=== PATIENT | male | born 1985 | race Hispanic/Latino ===

== ENCOUNTER 2019-07-24 12:11 | Emergency (ER) | payer OTHER ==
[2019-07-24 12:28] VITALS: BP 142/87
--- NOTE | 2019-07-24 12:28 | Event Note ---
ED Screening Note Date of service: 07/24/19 Time: 12:27 ED Screening Note: 33 y o mal preesents with left sided facial pain and swelling x 2 days This initial assessment/diagnostic orders/clinical plan/treatment(s) is/are subject to change based on patients health status, clinical progression and re- assessment by fellow clinical providers in the ED. Further treatment and workup at subsequent clinical providers discretion. Patient/guardian urged not to elope from the ED as their condition may be serious if not clinically assessed and managed. Initial orders include: ACC eval
[2019-07-24] MEDS ORDERED: TYLENOL #3 PO ONE (12:40)
--- NOTE | 2019-07-24 12:45 | Emergency Department Report ---
ED ENT HPI - General Chief complaint: Dental/Oral Stated complaint: LFT SIDE ABCESS/TOOTHACHE/PAIN Time Seen by Provider: 07/24/19 12:27 Source: patient Mode of arrival: Ambulatory Limitations: No Limitations - History of Present Illness Initial comments: Patient is a 33-year-old male who presents the emergency room with complaints of left-sided facial swelling over the left jaw that began yesterday morning. States that he needs to have 3 wisdom teeth removed. He states he has not seen a dentist in approximately 2-3 years. He denies any fever or difficulty swallowing. He is tolerating by mouth intake and secretions without difficulty. Denies any past medical history or allergies to medications. - Related Data Previous Rx's Medication Instructions Recorded Last Taken Type Acetaminophen/Codeine [Tylenol 1 tab PO Q6H PRN #7 tab 07/24/19 Unknown Rx /Codeine # 3 tab] Clindamycin [Clindamycin CAP] 450 mg PO TID 7 Days #63 capsule 07/24/19 Unknown Rx Ibuprofen [Motrin 800 MG tab] 800 mg PO Q8HR PRN #14 tablet 07/24/19 Unknown Rx Penicillin Vk [Veetids TAB] 500 mg PO QID 7 Days #56 tablet 07/24/19 Unknown Rx Allergies Allergy/AdvReac Type Severity Reaction Status Date / Time No Known Allergies Allergy Unverified 07/24/19 12:13 ED Dental HPI - General Chief complaint: Dental/Oral Stated complaint: LFT SIDE ABCESS/TOOTHACHE/PAIN Time Seen by Provider: 07/24/19 12:27 Source: patient Mode of arrival: Ambulatory Limitations: No Limitations - Related Data Previous Rx's Medication Instructions Recorded Last Taken Type Acetaminophen/Codeine [Tylenol 1 tab PO Q6H PRN #7 tab 07/24/19 Unknown Rx /Codeine # 3 tab] Clindamycin [Clindamycin CAP] 450 mg PO TID 7 Days #63 capsule 07/24/19 Unknown Rx Ibuprofen [Motrin 800 MG tab] 800 mg PO Q8HR PRN #14 tablet 07/24/19 Unknown Rx Penicillin Vk [Veetids TAB] 500 mg PO QID 7 Days #56 tablet 07/24/19 Unknown Rx Allergies Allergy/AdvReac Type Severity Reaction Status Date / Time No Known Allergies Allergy Unverified 07/24/19 12:13 ED Review of Systems ROS: Stated complaint: LFT SIDE ABCESS/TOOTHACHE/PAIN Other details as noted in HPI Comment: All other systems reviewed and negative ED Past Medical Hx - Past Medical History Previous Medical History?: No - Surgical History Past Surgical History?: No - Social History Smoking Status: Current Every Day Smoker Substance Use Type: None - Medications Home Medications: Home Medications Medication Instructions Recorded Confirmed Last Taken Type Acetaminophen/Codeine [Tylenol 1 tab PO Q6H PRN #7 tab 07/24/19 Unknown Rx /Codeine # 3 tab] Clindamycin [Clindamycin CAP] 450 mg PO TID 7 Days #63 capsule 07/24/19 Unknown Rx Ibuprofen [Motrin 800 MG tab] 800 mg PO Q8HR PRN #14 tablet 07/24/19 Unknown Rx Penicillin Vk [Veetids TAB] 500 mg PO QID 7 Days #56 tablet 07/24/19 Unknown Rx ED Physical Exam - General Limitations: No Limitations General appearance: alert, in no apparent distress - Head Head exam: Present: atraumatic, normocephalic - Eye Eye exam: Present: normal appearance - ENT ENT exam: Present: mucous membranes moist, other (dental caries present, area of edema and fluctuance present to the left side, edema present to the left side of the face overlying the left lower jaw, uvula is midline, no uvular edema) - Respiratory Respiratory exam: Present: normal lung sounds bilaterally. Absent: respiratory distress, wheezes, rales, rhonchi, stridor, chest wall tenderness, accessory muscle use, decreased breath sounds, prolonged expiratory - Cardiovascular Cardiovascular Exam: Present: regular rate, normal rhythm, normal heart sounds. Absent: systolic murmur, diastolic murmur, rubs, gallop - Neurological Exam Neurological exam: Present: alert, oriented X3 - Psychiatric Psychiatric exam: Present: normal affect, normal mood - Skin Skin exam: Present: warm, dry, intact ED Course Vital Signs 07/24/19 07/24/19 12:27 12:56 Temperature 98.3 F Pulse Rate 96 H Respiratory 18 15 Rate Blood Pressure 142/87 O2 Sat by Pulse 99 Oximetry ED Medical Decision Making - Medical Decision Making Patient is a 33-year-old male who presents the emergency room with complaints of left-sided facial swelling over the left jaw that began yesterday morning. States that he needs to have 3 wisdom teeth removed. He states he has not seen a dentist in approximately 2-3 years. He denies any fever or difficulty swallowing. He is tolerating by mouth intake and secretions without difficulty. Denies any past medical history or allergies to medications. VSS. on exam: dental caries present, area of edema and fluctuance present to the left side, edema present to the left side of the face overlying the left lower jaw, uvula is midline, no uvular edema. examination consistent with dental abscess with facial cellulitis. pts pain treated while in the ED. given prescription for clindamycin, penicillin VK, short course pain medication, and anti-inflammatory. advised pt to please take medication as prescribed. Do not drive or operate machinery while taking pain medication. Follow up with a dentist in the next 2-3 days. It is very important that you follow-up with a dentist for permanent solution. given list of community dental clinics. Return to the emergency room for any new or worsening symptoms. Critical care attestation.: If time is entered above; I have spent that time in minutes in the direct care of this critically ill patient, excluding procedure time. ED Disposition Clinical Impression: Dental abscess, Facial cellulitis, Dental caries Disposition: TO HOME OR SELFCARE Is pt being admited?: No Does the pt Need Aspirin: No Condition: Stable Instructions: Dental Abscess (ED) Additional Instructions: Please take medication as prescribed. Do not drive or operate machinery while taking pain medication. Follow up with a dentist in the next 2-3 days. It is very important that you follow-up with a dentist for permanent solution. given list of community dental clinics. Return to the emergency room for any new or worsening symptoms. Prescriptions: Clindamycin [Clindamycin CAP] 450 mg PO TID 7 Days #63 capsule Ibuprofen [Motrin 800 MG tab] 800 mg PO Q8HR PRN #14 tablet PRN Reason: Pain, Moderate (4-6) Acetaminophen/Codeine [Tylenol /Codeine # 3 tab] 1 tab PO Q6H PRN #7 tab PRN Reason: Pain , Severe (7-10) Penicillin Vk [Veetids TAB] 500 mg PO QID 7 Days #56 tablet Referrals: a, dentist [Other] - 2-3 Days Time of Disposition: 12:45 Print Language: URDU
== END 2019-07-24 13:29 | disposition home or self-care (01) ==
LOC: ED 12:11
DX: K04.7 Periapical abscess without sinus (principal); L03.211 Cellulitis of face; K02.9 Dental caries, unspecified; F17.200 Nicotine dependence, unspecified, uncomplicated